=== PATIENT | male | born 1960 ===

== ENCOUNTER 2024-12-25 20:14 | Emergency (ER) | payer BC ==
[2024-12-25 20:49] LABS: BASOPHILS ABSOLUTE AUTO 0.02 K/uL (0.00-0.20); BASOPHILS PERCENT AUTO 0.3 % (0.0-2.0); HEMATOCRIT 28.6 % (39.0-49.0); HEMOGLOBIN 9.4 g/dL (13.1-16.8); IMMATURE GRAN ABSOLUTE AUTO 0.37 10^3/uL (0.00-0.04); IMMATURE GRAN PERCENT AUTO 4.9 % (0.0-0.4); LYMPHOCYTES ABSOLUTE AUTO 0.48 K/uL (0.50-3.50); LYMPHOCYTES PERCENT AUTO 6.4 % (10.0-50.0); MEAN CORPUSCULAR HEMOGLOBIN 30.7 pg (28.2-33.3); MEAN CORPUSCULAR HGB CONC 32.9 g/dL (31.7-36.0); MEAN CORPUSCULAR VOLUME 93.5 fL (84.0-98.0); MONOCYTES ABSOLUTE AUTO 0.78 K/uL (0.00-1.00); MONOCYTES PERCENT AUTO 10.4 % (2.0-14.0); NEUTROPHILS ABSOLUTE AUTO 5.87 K/uL (1.40-7.00); PLATELET COUNT,PLT 252 K/uL (150-350); RED BLOOD CELL COUNT 3.06 M/uL (4.33-5.41); RED CELL DISTRIBUTION WIDTH 16.5 % (11.2-14.1); WHITE BLOOD CELL COUNT,WBC 7.5 K/uL (4.0-10.2)
[2024-12-25] MEDS: Sodium Chloride 0.9% 1,000 ML IV ONE (21:03)
[2024-12-25 21:04] LABS: ALANINE AMINOTRANSFERASE,ALT 18 U/L (12-78); ALBUMIN 2.6 g/dL (3.4-5.0); ALKALINE PHOSPHATASE 243 IU/L (46-116); ASPARTATE AMNIOTRANSFERASE,AST 18 U/L (15-37); BILIRUBIN TOTAL 0.5 mg/dL (0.2-1.0); BLOOD UREA NITROGEN,BUN 13 mg/dL (7-18); CALCIUM 7.6 mg/dL (8.5-10.1); CHLORIDE,CL 104 mmol/L (98-107); CREATININE 1.43 mg/dL (0.51-1.17); ESTIMATED GFR 55 mL/min (>=60); GLUCOSE RANDOM 89 mg/dL (70-99); MAGNESIUM 1.6 mg/dL (1.8-2.4); POTASSIUM,K 3.5 mmol/L (3.5-5.1); PROTEIN TOTAL,TP 6.4 g/dL (6.4-8.2); SODIUM,NA 141 mmol/L (136-145)
== END 2024-12-25 22:10 | disposition home or self-care (01) ==
LOC: LL.ED 20:14
DX: E86.0 Dehydration (principal); E83.42 Hypomagnesemia
CPT/HCPCS: 36415; 80053; 83735; 85025; 96360; 99284; 99284-25; J7030